=== PATIENT | male | born 1930 | race Caucasian/White ===

== ENCOUNTER 2017-06-02 03:34 | Inpatient (IN) ==
[2017-06-02] MEDS ORDERED: SALINE FLUSH 10ml SYRINGE IVF PRN (04:02)
--- OUTSIDE RECORDS SUMMARY | 2017-06-02 04:20 | External Medical Summary | Summary of Care ---
:1930 Author Name Russell Mireles M.D. Address [address] [facility] [place] [address] Care Team Providers Name Role Phone Russell Mireles M.D. Unavailable Unavailable Miller Krishna Unavailable Unavailable Unavailable Unavailable Unavailable Functional Status Functional Status Health Issues Name Dates Details Functional status health issues are not documented Status: Cognitive Status Health Issues Name Dates Details Cognitive status health issues are not documented Status: Problems Name Dates Details CAD (coronary artery disease) (414.00, I25.10) Status: Active Hypertension (401.9, I10) Status: Active Dyslipidemia (272.4, E78.5) Status: Active Cardiac arrhythmia (427.9, I49.9) Status: Active Malignant neoplasm of prostate (185, C61) Status: Active History of therapeutic radiation (V15.3, Z92.3) Status: Active Benign prostatic hyperplasia with lower urinary tract symptoms (600.01, N40.1) Status: Active Medications Name Dates Details Folic Acid 5 MG Oral Capsule TAKE 1 CAPSULE DAILY. Refills: 0 Start 14-Jun-2015 Active Acyclovir 200 MG Oral Capsule Refills: 0 Start 14-Jun-2015 Active Fluticasone Propionate 50 MCG/ACT Nasal Suspension Refills: 0 Start 14-Jun-2015 Active Aspirin 81 MG TABS TAKE 1 TABLET DAILY. Refills: 0 Start 14-Jun-2015 Active Fish Oil 1000 MG Oral Capsule TAKE 1 CAPSULE DAILY. Refills: 0 Start 14-Jun-2015 Active Multivitamins Oral Capsule TAKE 1 CAPSULE DAILY. Refills: 0 Start 14-Jun-2015 Active Calcium 600 MG Oral Tablet TAKE 1 TABLET DAILY. Refills: 0 Start 14-Jun-2015 Active Omeprazole 20 MG Oral Capsule Delayed Release TAKE 1 CAPSULE DAILY. Refills: 0 Russell Mireles M.D. Start 14-Jun-2015 Active Nortriptyline HCl - 25 MG Oral Capsule Refills: 0 Start 14-Jun-2015 Active Amlodipine-Atorvastatin 5-20 MG Oral Tablet TAKE 1 TABLET DAILY. Refills: 0 Start 14-Jun-2015 Active Metoprolol Succinate ER 50 MG Oral Tablet Extended Release 24 Hour Refills: 0 Start 14-Jun-2015 Active Latanoprost 0.005 % Ophthalmic Solution Refills: 0 Start 19-Jan-2016 Active Allergies and Adverse Reactions Name Dates Details No Known Allergies (Allergy) Status: Active Procedures Procedure Dates Details History of Cath Stent Placement History of Appendectomy History of Colonoscopy Procedures not documented Immunization Name Dates Details Immunizations not documented Family History Sibling Name Dates Details Family history of cerebrovascular accident (CVA) (V17.1, Z82.3) Status: Active Mother Name Dates Details Family history of hypertension (V17.49, Z82.49) Status: Active Family history of cerebrovascular accident (CVA) (V17.1, Z82.3) Status: Active Family history of Coronary heart disease (414.00, I25.10) Status: Active Brother Name Dates Details Family history of pancreatic cancer (V16.0, Z80.0) Status: Active Social History Name Dates Details - Status: Smoking Status Name Dates Details Never smoker Vital Signs Date Test Result Details 19-Jan-2016 09:32 BP Systolic 128 mm[Hg] Status: Comments: Location: ; Position: BP Diastolic 71 mm[Hg] Status: Comments: Location: ; Position: Heart Rate 67 /min Status: Comments: Location: ; Height 69 in Status: Weight 165 lb Status: Body Mass Index Calculated 24.37 kg/m2 Status: Body Surface Area Calculated 1.9 m2 Status: Results Date Description Value Details 19-Jan-2016 13:09 PSA ( PROSTATE SPECIFIC ANTIGEN) 3100 PROSTATE SPECIFIC ANTIGEN 0.440 ng/mL Range: 0.000-4.000 Plan of Care Name Dates Details Planned Observations Planned Goals not documented Instructions Name Dates Details Instructions not documented Encounters Appointment; Russell Mireles M.D. On 19-Jan-2016 Encounter Diagnosis: Problem not documented 09:00
--- OUTSIDE RECORDS SUMMARY | 2017-06-02 04:20 | External Medical Summary | Summary of Care ---
:1930 Author Name Russell Mireles M.D. Address [address] [facility] [place] [address] Care Team Providers Name Role Phone Russell [...] Placement History of Appendectomy History of Colonoscopy PSA ( PROSTATE SPECIFIC ANTIGEN) 3100 Ordered: 19-Jan-2016 Immunization Name Dates Details Immunizations not documented [...] m2 Status: Results Date Description Value Details Results not documented Plan of Care Name Dates Details Planned Observations Planned Goals not documented Interventions Provided Labs/Procedures/ImagingPSA ( PROSTATE SPECIFIC ANTIGEN) 3100; To be Done: 19 Jan 2016 Instructions Name Dates Details Instructions not documented Encounters Appointment; Russell Mireles M.D. On 19-Jan-2016 Encounter Diagnosis: Problem not documented 09:00
--- OUTSIDE RECORDS SUMMARY | 2017-06-02 04:20 | External Medical Summary | Continuity of Care Document ---
:1930 Author Organization [facility] Support Name Relationship Address Phone JAYSON HARKINS DO Unavailable [facility] Unavailable [address] [place] [address] STEFANIE LOMAS MD Unavailable Unavailable Unavailable CHRISTOFER MOJICA MD Unavailable [facility] [place] [address] DULCE MOREIRA Unavailable [address] [place] [address] Insurance Providers Payer Name Policy Number Subscriber Name Relationship Medicarehumicha Campbell [facility] [id number] Rosalia Moreira 20 Self Advance Directives Directive Response Recorded Date/Time Advanced Directives Type None 09/01/14 10:30pm Problems Medical Problems Problem Onset Date Status 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 Laceration of right index finger w/o foreign body w/o damage to Unknown Active nail Medications Medication Dose Route Sig Days/Qty Instructions Order Discontinued Status Date Date Alprazolam 0.5 PO 09/22/ 09/23/08 Discontinue Mg NEEDED 09 d [Nitro-Quick] 09/22/ 09/23/08 Discontinue NEEDED 09 d Metoprolol 50 Mg PO DAILY 09/23/ Active Succinate 09 Omeprazole 20 Mg PO DAILY 09/23/ Active 09 Ezetimibe/Simv 1 Tab PO DAILY 09/23/ 09/10/12 Discontinue astatin 09 d Fluticasone 16 Gm NS BEDTIME 09/23/ 07/26/12 Discontinue Propionate 09 d Aspirin 81 Mg PO DAILY 09/23/ Active 09 [place]-3 Fatty 500 PO DAILY 09/23/ Active Acids Mg 09 Multivitamins 1 Tab PO DAILY 09/23/ Active 09 Calcium 2 Tab PO DAILY 09/23/ Active Carbonate/Denae 09 min D3 Nortriptyline 25 Mg PO DAILY 07/26/ Active Hcl 13 Atorvastatin 20 Mg PO DAILY 09/10/ Active Calcium 13 Fluticasone 16 Gm NS 09/10/ Active Propionate NEEDED 13 Social History Social History Problem Response Recorded Date/Time Chewing Tobacco Status No 09/10/2012 11:36am Hx Substance Use No 09/01/2014 11:16pm Hx Alcohol Use Y GLASS OF WINE TWICE A WEEK 09/01/2014 11:16pm Has the pt used tobacco in the last No 09/10/2012 11:36am 12 months Tobacco Usage none 06/29/2014 6:38am Query Response Start Date Stop Date Smoking Status Never smoker Hospital Discharge Instructions No hospital discharge instructions. Plan of Care No plan of care. Functional Status Query Response Date Recorded Physical Hygiene Self September 01, 2014 11:16pm Disabilities Hearing September 01, 2014 11:16pm Visual Devices Used Glasses September 01, 2014 11:16pm Dressing Self September 01, 2014 11:16pm Ambulation Self September 01, 2014 11:16pm Diet Self September 01, 2014 11:16pm Mental Status Alert September 01, 2014 11:37pm Disabilities Hearing September 01, 2014 11:16pm Visual Devices Used Glasses September 01, 2014 11:16pm Physical Hygiene Self September 01, 2014 11:16pm Dressing Self September 01, 2014 11:16pm Ambulation Self September 01, 2014 11:16pm Diet Self September 01, 2014 11:16pm Allergies, Adverse Reactions, Alerts Allergen Type Severity Reaction Status Last Updated No Known Drug Allergies Allergy Unknown Active 09/01/14 Immunizations Name Given Type Hx Influenza Vaccination Y fall 2013 Historical Hx Pneumococcal Vaccination Y YEARS AGO Historical Hx Tetanus, Diptheria, Pertussis Y 09/02/14 Historical Hx Influenza Vaccination Y fall 2013 Historical Hx Tetanus, Diptheria, Pertussis Y 09/02/14 Historical Vital Signs Acute Vital Signs Vital Response Date/Time Temperature (Fahrenheit) 97.4 deg F (96.8 - 99.1) Temperature (Calculated Celsius) 36.70715 degrees C (36.0 - 37.3) Pulse Rate (adult) 78 bpm (60 - 100) Respiratory Rate 16 breaths/min (10 - 20) O2 Sat by Pulse Oximetry 97 % (90 - 100) Blood Pressure 180/80 mm Hg Height 5 ft 8 in Weight 169 lb Body Mass Index 25.0 kg/m^2 Results Test Source Date Result Interp. Ref. Comments Range Activated Partial June 29, 29.2 SEC N 24-36 Thromboplast Time 2014 6:45am Alanine June 29, 27 U/L N 21-72 Aminotransferase 2014 6:45am (ALT/SGPT) Albumin June 29, 3.9 G/DL N 3.5-5.0 2014 6:45am Albumin/Globulin June 29, 1.4 RATIO N 1.1-2.2 Ratio 2014 6:45am Alkaline Phosphatase June 29, 58 U/L N 38-126 2014 6:45am Anion Gap June 29, 11 MEQ/L N 5-15 2014 6:45am Aspartate Amino June 29, 25 U/L N 17-59 Transf (AST/SGOT) 2014 6:45am BUN/Creatinine Ratio June 29, 14 RATIO N 6-26 2014 6:45am Basophils # (Auto) June 29, 0.0 T/MM3 N 0-0.2 2014 6:45am Basophils (%) (Auto) June 29, 0.5 % N 0-2 2014 6:45am Blood Urea Nitrogen June 29, 23.0 MG/DL H 9-20 2014 6:45am Calcium Level June 29, 9.3 MG/DL N 8.4-10.2 2014 6:45am Calculated Osmolality June 29, 280 MOSM/KG N [id number] 5714 6:45am Carbon Dioxide Level June 29, 27 MEQ/L N 22-30 2014 6:45am Chemistry Specimen June 29, < 15 0-25 0-25: No Hemolysis.26-70: Slight Hemolysis - can falsely elevate K and Urine Hemolysis 2014 6:45am Protein. 71-285: Moderate Hemolysis - can falsely elevate K, Troponin I, CA 19-9, PTH, CSF GLucose, and Urine Protein, and can falsely decrease Phenytoin. 286-999: Gross Hemolysis - can falsely elevate K, Troponin I, CA 19-9, PTH, CSF Glucose, and Urine Protine, and can falsely decrease Phenytoin. Recommend specimen recollection. Chloride Level June 29, 105 MEQ/L N 98-107 2014 6:45am Conjugated Bilirubin July 26, 0.00 MG/DL N 0.00-0.30 2012 10:14pm Creatinine June 29, 1.6 MG/DL H 0.8-1.5 2014 6:45am Eosinophils # (Auto) June 29, 0.5 T/MM3 N 0-0.5 2014 6:45am Eosinophils (%) June 29, 7.7 % H 0-4 (Auto) 2014 6:45am Globulin June 29, 2.8 G/DL N 2.4-3.6 2014 6:45am Glomerular Filtration June 29, 42 - Rate Calc 2014 6:45am Glucometer June 29, 108 mg/dL N 75-110 2014 6:54am Glucose Level June 29, 112 MG/DL H 75-110 2014 6:45am Hematocrit June 29, 38.9 % L 41-53 2014 6:45am Hemoglobin June 29, 13.6 GM/DL N 13.5-17.5 2014 6:45am Icterus Index June 29, < 2 0-7 2014 6:45am Immature Granulocyte June 29, 0.01 T/MM3 N 0.00-0.03 # (Auto) 2014 6:45am Immature Granulocyte June 29, 0.2 % N 0.0-0.5 % (Auto) 2014 6:45am Influenza Type A April 07, Negative - Antigen 2008 11:35am Influenza Type B April 07, Negative - Antigen 2008 11:35am Lab Scanned Report April 07, LAB TEST FORM - 2008 10:41pm REQUEST [id number] Lymphocytes # (Auto) June 29, 2.1 T/MM3 N 1-4.8 2014 6:45am Lymphocytes (%) June 29, 32.8 % N 23-45 (Auto) 2014 6:45am Mean Corpuscular June 29, 33.9 UUG N 26-34 Hemoglobin 2014 6:45am Mean Corpuscular June 29, 35.0 GM/DL N 31-37 Hemoglobin Concent 2014 6:45am Mean Corpuscular June 29, 97.0 UM3 N 80-100 Volume 2014 6:45am Mean Platelet Volume June 29, 10.3 UM3 N 9.4-12.4 2014 6:45am Monocytes # (Auto) June 29, 0.8 T/MM3 N 0-0.8 2014 6:45am Monocytes (%) (Auto) June 29, 11.7 % H 0-9.0 2014 6:45am Neutrophils # (Auto) June 29, 3.1 T/MM3 N 1.8-7.7 2014 6:45am Neutrophils (%) June 29, 47.1 % N 33-66 (Auto) 2014 6:45am Platelet Count June 29, 157 T/MM3 N 380-466 9710 6:45am Potassium Level June 29, 4.3 MEQ/L N 3.6-5 2014 6:45am Prothromb Time June 29, 1.00 N 0.81-1.09 THERAPUTIC International Ratio 2014 6:45am RANGE=2.00-3.0 0 FOR ANTI-THROMBOSI S THERAPUTIC RANGE=2.50-3.5 0 FOR IMPLANTED VALVE RDW Standard June 29, 42.7 FL N 36.9-50.2 Deviation 2014 6:45am Red Blood Count June 29, 4.01 M/MM3 L 4.50-5.90 2014 6:45am Sodium Level June 29, 143 MEQ/L N 476-322 2385 6:45am Total Bilirubin June 29, 0.70 MG/DL N 0.20-1.30 2014 6:45am Total Protein June 29, 6.7 G/DL N 6.3-8.2 2014 6:45am Troponin I June 29, < 0.012 0-0.12 2014 6:45am ng/ml Turbidity June 29, < 20 0-20 2014 6:45am Unconjugated July 26, 0.30 MG/DL N 0.00-1.10 Bilirubin 2012 10:14pm White Blood Count June 29, 6.5 T/MM3 N 4.5-11.0 2014 6:45am Name: ROSALIA MOREIRA Unit #: [id number] : 1930 Sex: M Loc / Svc: [facility] DOS: 07/03/14 Signed Report #: [id number] DIAGNOSTIC IMAGING REPORT TYPE OF EXAM: US CAROTID DOPP COMPLETE Dictated By: GABRIELE EARLY MD TECHNIQUE: Grayscale, color and duplex Doppler imaging was performed of the carotid systems bilaterally. Velocities in cm/sec RIGHT: PSV ICA 53 PSV CCA 97 PDV CCA 9.6 PSV ECA 80 ICA Diameter reduction <20% (0.8-1.0)% LEFT: PSV ICA 85 PDV ICA 14 PSV CCA 94 PDV CCA 18 PSV ECA 100 ICA Diameter reduction <20% (0.8-1.0)% The right vertebral artery is patent with cephalic flow. The left vertebral artery is patent with cephalic flow. Scattered atherosclerotic plaque in the carotid bulbs and proximal ICAs. IMPRESSION: No hemodynamically significant carotid stenosis. . Procedures Procedure Status Date Provider(s) PLACE NEEDLE IN VEIN completed 06/29/[address] HEAD/BRAIN W/O DYE completed 06/29/14 COMPREHEN METABOLIC PANEL completed 06/29/14 REAGENT STRIP/BLOOD GLUCOSE completed 06/29/14 ASSAY OF TROPONIN QUANT completed 06/29/14 COMPLETE CBC W/AUTO DIFF WBC completed 06/29/14 PROTHROMBIN TIME completed 06/29/14 THROMBOPLASTIN TIME PARTIAL completed 06/29/14 ELECTROCARDIOGRAM TRACING completed 06/29/14 EMERGENCY DEPT VISIT completed 06/29/14 EXTRACRANIAL BILAT STUDY completed 07/03/14 Encounters Encounter Location Date/Time Departed Emergency Room [facility] 09/01/14 9:42pm Registered Clinic [facility] 07/03/14 9:29am Departed Emergency Room [facility] 06/29/14 6:11am Recent Diagnosis
--- OUTSIDE RECORDS SUMMARY | 2017-06-02 04:20 | External Medical Summary | Summary of Care ---
:1930 Author Name Russell Mireles M.D. Address [address] [facility] [place] [address] Care Team Providers Name Role Phone Russell [...]
--- NOTE | 2017-06-02 05:39 | History & Physical Report ---
History of Present Illness Date: 06/02/17 Chief complaint: rectal bleeding HPI: 86-year-old male presents to the emergency room with rectal bleeding. This started around 0200. He woke up because He was incontinent of stool, went to the restroom and noted that Was bright red bloody bowel movement that he had an event in the stool. He's had a couple few more including one here at the hospital. He denies any feelings of illness either earlier today or with the bowel movements and even right at this moment. He does feel a bit of pressure in his abdomen like some urgency that he needs to have a bowel movement. He denies taking aspirin or any blood thinners for that matter. He denies any known previous history of anything like this. He thinks he had a colonoscopy 5 years ago that was reportedly normal. He denies any fever chills nausea vomiting he denies any cough shortness of breath orthopnea or PND. He usually ambulates normally without assistive device. Review of records indicates his last hemoglobin on record was 13.6 on June Annamarie WISDOM: patient was seen this afternoon. He was resting comfortable in bed. His is at bedside. He reports that this all started very suddenly. He did not have any problems prior to waking up at 2 AM with blood in the bed. He denies any abdominal pain. He states he had a colonoscopy about 5 or [address] Krishna and was told have it done again 10 years. He denies any nausea or vomiting. He denies any abdominal pain. He has continued to have bright red blood per rectum since arrival. He states that it just pours out. He does have an occasional bowel movement with it but it's quite loose with small pieces of thicker material. He states he had a normal bowel movement the day prior. He is having issues with getting up to the bathroom. He becomes diuretic and week. Vital signs have been reasonably stable however at 106/55 with a heart rate of 58 this last trip. He was setting 97% on room air. Blood glucose was checked and it was 180. He denies any chest pain or palpitations. When this started he thought he was having some gas pressure in his stomach that that is subsequently resolved. He is not been ill lately particularly no fever or chills. He denies any shortness of breath, cough or sputum production. He denies any issues with lower extremity edema. Review of Systems All systems PM: 10-point ROS was reviewed, no additional remarkable complaints except Review of systems: Annamarie WISDOM: Review of systems was noted in HPI Past Medical History Clinic Medical History (Last Reviewed 05/01/17 @ 09:29 by Latonya Guerrier RN) Macular degeneration (Chronic Medical) Hyperlipidemia (Chronic Medical) Hypertension (Chronic Medical) History of prostate cancer (Chronic Medical) Radiation Cataract (Chronic Medical) CAD (coronary artery disease) (Chronic Medical) GERD (gastroesophageal reflux disease) (Chronic Medical) AnnamarieMD: Medical history reviewed with the patient and agree with above Surgical History: Appendectomy: as child. Heart catheterization with stent placement: late 1989' Family History: Family History (Last Reviewed 05/01/17 @ 09:29 by Latonya Guerrier RN) Mother CAD (coronary artery disease) Brother Pancreatic cancer Brother Heart attack Family History Updates: nc based on age. Real: Dad at 90 for old age. Mom of a heart attack that she was 80. - Social History Smoking status: Never smoker Medications Home Medications Medication Instructions Recorded Confirmed Type Nortriptyline HCl 25 mg PO DAILY #0 07/26/12 06/02/17 History Atorvastatin Calcium 20 mg PO HS #0 09/10/12 06/02/17 History Folic Acid 0.4 mg PO DAILY #0 09/06/14 06/02/[address] [place]-3 Fatty Acids/Fish Oil [Fish 1,000 mg PO DAILY #0 01/01/16 06/02/17 History Oil 1,000 mg Softgel] Lopressor (metoprolol tartrate) 50 50 mg PO DAILY tab 02/27/17 06/02/17 History mg tablet latanoprost (Xalatan) 0.005 % eye 0.005 % OP DAILY ml 02/27/17 06/02/17 History drops multivitamin tablet 1 tab PO DAILY tab 02/27/17 06/02/17 History Allergies Allergy/AdvReac Type Severity Reaction Status Date / Time No Known Drug Allergies Allergy Unknown Verified 06/02/17 06:23 Exam Vital Signs: Temperature 98.3 F 06/02/17 03:40 Pulse Rate 88 06/02/17 03:40 Respiratory Rate 18 06/02/17 03:40 Blood Pressure 183/80 H 06/02/17 03:40 Pulse Oximetry 98 06/02/17 03:40 Height/Weight/BMI: Height 1.73 m Weight 74 kg Comments: AnnamarieMD: Gen: alert and oriented. NAD. Pleasant and conversive Skin: warm and dry. HEENT: NC/AT PERRL, EOMI, Sclera,lids and conjunctiva wnl. MMM. OP clear. Neck: supple. No JVD. Carotids 2+ without bruits Lungs: clear. No rales, rhonchi or wheezes CV: regular rate and rhythm. No murmur, rub or gallop No edema. Pedal pulses are good Abd: soft. +BS. NT/ND MS: Good strength and ROM. Neuro: no focal deficit. - Constitutional Present: no acute distress, well nourished, well developed Comments: is very pleasant and appears perhaps younger than stated age alert and oriented 3 HEENT no scleral pallor No icterus Lungs are clear bilaterally Cardiovascular is regular without murmur Abdomen is soft nontender nondistended normoactive bowel sounds Extremities no edema Results - Labs CBC & Chem 7: 06/02/17 09:03 06/02/17 04:32 Assessment and Plan (1) Hematochezia Current visit: Yes Status: Acute (2) Anemia due to acute blood loss Current visit: Yes Status: Acute (3) Hyperlipidemia Current visit: No Status: Chronic (4) Hypertension Current visit: No Status: Chronic (5) CAD (coronary artery disease) Current visit: No Status: Chronic (6) History of prostate cancer Problem details: Radiation Current visit: No Status: Chronic (7) GERD (gastroesophageal reflux disease) Current visit: No Status: Chronic (8) Renal failure Problem details: previous creat 1.6 on 06/29/14 Current visit: Yes Status: Acute Assessment and Plan: Assessment and Plan: Annamarie MD: 1. Acute lower GI bleed. -Painless, without fever or elevated white count. -Patient had colonoscopy 5 years ago without significant finding. -Supportive care, IVF -H&H again later today. -Dr. Fan has seen an order 3 ducal locks suppositories and is planning on a colonoscopy. -Keep NPO 2. Anemia from acute GI blood loss -will await on Dr. Fan's plan -serial H &H -IV fluids 3. CAD with stents in late . (Gildardo) -on beta jorge and Hanna but not on aspirin regularly. 4. Hypertension -holding beta jorge at this time as blood pressures are on the low side 5. Acute kidney injury -no history of chronic kidney disease per patient. -Will follow labs -IV fluids 6. Prophylaxis -SCD's -PPI DVT Prophylaxis: SCD's GI Prophylaxis: Protonix Resuscitation Status: Full Code - Time spent with patient Time with patient PN: 25 minutes - Physician Narrative Physician: Ayad Moe MD, Brenda De Luna MD, other (Lori WISDOM Telemed Night ) Narrative: Date: 06/02/17 Time: 0536 Hospital Course Summary Disclaimer: The visit summary below is not to be considered part of the above Progress Note.
--- NOTE | 2017-06-02 05:45 | Emergency Department Report ---
GI Bleed HPI - General Chief complaint: GI Bleed Stated complaint: bloody b.m Time Seen by Provider: 06/02/17 04:02 - History of Present Illness HPI Narrative: 86-year-old gentleman brought in with rectal bleed. Patient awoke shortly thereafter at night with bright red blood per rectum. He is not incontinent of stool by history, but noted that he was leaking something and thought he had had a bowel movement. In the bathroom he noticed bright red blood into the toilet bowl and when he wiped toilet paper was covered in blood. Bleeding continued and was dripping. At which time he placed a washcloth in his underwear and came directly to the ER. He has had no previous history of colon cancer. Has had multiple colonoscopies, with the last one being approximately 4- 5 years ago. He was clean at that time and told that he could wait 10 years prior to repeating unless he had any new issues. He's had no lightheadedness or dizziness or shortness of breath. As of yesterday he felt fine and was active. - Related Data Home Medications Medication Instructions Recorded Confirmed Nortriptyline HCl 25 mg PO DAILY #0 07/26/12 06/02/17 Atorvastatin Calcium 20 mg PO HS #0 09/10/12 06/02/17 Folic Acid 0.4 mg PO DAILY #0 09/06/14 06/02/17 [place]-3 Fatty Acids/Fish Oil [Fish 1,000 mg PO DAILY #0 01/01/16 06/02/17 Oil 1,000 mg Softgel] Lopressor (metoprolol tartrate) 50 50 mg PO DAILY tab 02/27/17 06/02/17 mg tablet latanoprost (Xalatan) 0.005 % eye 0.005 % OP DAILY ml 02/27/17 06/02/17 drops multivitamin tablet 1 tab PO DAILY tab 02/27/17 06/02/17 Allergies Allergy/AdvReac Type Severity Reaction Status Date / Time No Known Drug Allergies Allergy Unknown Verified 06/02/17 03:59 Review of Systems All systems: reviewed and negative except as stated [facility] Medical History (Last Reviewed 05/01/17 @ 09:29 by Latonya Guerrier RN) Macular degeneration (Chronic Medical) Hyperlipidemia (Chronic Medical) Hypertension (Chronic Medical) History of prostate cancer (Chronic Medical) Radiation Cataract (Chronic Medical) CAD (coronary artery disease) (Chronic Medical) GERD (gastroesophageal reflux disease) (Chronic Medical) Surgical History: Appendectomy: as child. Heart catheterization with stent placement: late Family History: Family History (Last Reviewed 05/01/17 @ 09:29 by Latonya Guerrier RN) Mother CAD (coronary artery disease) Brother Pancreatic cancer Brother Heart attack - Social History Smoking status: Never smoker Substance use type: does not use Physical Exam - Limitations Limitations: no limitations - General General appearance: alert, anxious - Normal Exams: Head:: Normocephalic without trauma Chest/Respirations:: Clear all olsen, with good airflow, and symmetry bilaterally Cardiovascular:: Regular rate and rhythm, without murmur or gallop, Pulses 2+ all extremities, capillary refill, <2 seconds all extremities Abdomen:: Bowel sounds positive, soft, non-tender, non-distended, no hepatosplenomegaly, masses or bruits noted Neurological:: Patient is alert, and oriented, cranial nerves, motor/sensory/ cerebellar, exams w/o gross deficits, to observation Psychiatric:: Patient exhibits, appropriate attention, emotion and affect - Rectal Exam Rectal exam: Present: normal rectal tone, other (bright red blood per rectum) Course Vital Signs Temperature 98.3 F 06/02/17 03:40 Pulse Rate 88 06/02/17 03:40 Respiratory Rate 18 06/02/17 03:40 Blood Pressure 183/80 H 06/02/17 03:40 Pulse Oximetry 98 06/02/17 03:40 Temperature 98.3 F 06/02/17 03:40 Pulse Rate 88 06/02/17 03:40 Respiratory Rate 18 06/02/17 03:40 Blood Pressure 183/80 H 06/02/17 03:40 Pulse Oximetry 98 06/02/17 03:40 GI Bleed - MDM Narrative Medical decision making narrative: Patient noted to have bright red blood per rectum. Hemoglobin 11.9 with most recent hemoglobin from greater than 2 years ago being 13. Patient has stable vitals and no pain. I spoke with Dr. Fan, on-call for surgery, who agreed to be consult for care and requested the hospitalist admit the patient. Spoke with Dr. Sandoval who agreed to admit the patient is in the process of doing so at this time. I discussed this with the patient has and they're aware that plan will be to admit and do follow-up serial hemoglobin and hematocrit. - Differential Diagnosis Likely: hemorrhoids, Upper gastrointestinal hemorrhage, Lower gastrointestinal hemorrhage, melena, anal fissure - Medical Records Attestation: I reviewed the patient's medical records. - Lab Data Attestation: I reviewed the patient's lab results. Result diagrams: 06/02/17 04:32 06/02/17 04:32 Lab Results 06/02/17 06/02/17 06/02/17 Range/Units 04:32 04:32 04:32 WBC 8.7 (4.5-11.0) T/MM3 RBC 3.54 L (4.50-5.90) M/MM3 Hgb 11.9 L (13.5-17.5) GM/DL Hct 34.8 L (41-53) % MCV 98.3 (80-100) UM3 MCH 33.6 (26-34) UUG MCHC 34.2 (31-37) GM/DL RDW Std Deviation 45.1 (36.9-50.2) FL Plt Count 163 (130-400) T/MM3 MPV 10.7 (9.4-12.4) UM3 Immature Gran % (Auto) 0.1 (0.0-0.5) % Neut % (Auto) 66.1 H (33-66) % Lymph % (Auto) 20.2 L (23-45) % [place] % (Auto) 7.5 (0-9.0) % Eos % (Auto) 5.6 H (0-4) % Baso % (Auto) 0.5 (0-2) % Neut # (Auto) 5.8 (1.8-7.7) T/MM3 Lymph # (Auto) 1.8 (1-4.8) T/MM3 [place] # (Auto) 0.7 (0-0.8) T/MM3 Eos # (Auto) 0.5 (0-0.5) T/MM3 Baso # (Auto) 0.0 (0-0.2) T/MM3 Abs Immat Gran (auto) 0.01 (0.00-0.03) T/MM3 INR 1.05 (0.99-1.21) Turbidity < 20 (0-20) Sodium 141 (134-144) MEQ/L Potassium 4.2 (3.6-5) MEQ/L Chloride 109 H (98-107) MEQ/L Carbon Dioxide 21 L (22-30) MEQ/L Anion Gap 11 (5-15) MEQ/L BUN 23.0 H (9-20) MG/DL Creatinine 1.3 (0.8-1.5) MG/DL GFR Calculation 53 BUN/Creatinine Ratio 18 (6-26) RATIO Glucose 129 H (75-110) MG/DL Calculated Osmolality 277 (261-280) MOSM/KG Calcium 9.5 (8.4-10.2) MG/DL Total Bilirubin 0.40 (0.20-1.30) MG/DL Icterus Index < 2 (0-7) AST 20 (17-59) U/L ALT 33 (21-72) U/L Alkaline Phosphatase 85 (38-126) U/L Total Protein 7.2 (6.3-8.2) G/DL Albumin 4.1 (3.5-5.0) G/DL Globulin 3.1 (2.4-3.6) G/DL Albumin/Globulin Ratio 1.3 (1.1-2.2) RATIO Specimen Hemolysis < 15 (0-25) - Radiology Data Attestation: I reviewed the patient's radiology results. Disposition Clinical Impression: Rectal bleed Disposition: 02 To [facility] Condition: Stable Prescriptions: No Action Nortriptyline HCl 25 mg PO DAILY #0 Atorvastatin Calcium 20 mg PO HS #0 Folic Acid 0.4 mg PO DAILY #0 [place]-3 Fatty Acids/Fish Oil [Fish Oil 1,000 mg Softgel] 1,000 mg PO DAILY #0 multivitamin tablet 1 tab PO DAILY tab Lopressor (metoprolol tartrate) 50 mg tablet 50 mg PO DAILY tab latanoprost (Xalatan) 0.005 % eye drops 0.005 % OP DAILY ml Referrals: Ifrah Galo MD [Family Provider] - Time of Disposition: 05:46 - Seen By: physician
[2017-06-02] MEDS ORDERED: MORPHINE SULFATE 4mg INJECTION IVP PRN (06:07)
[2017-06-02] MEDS: D5-1/2NS 1,000 ML IV SCH ×4 (06:28→23:23)
[2017-06-02 06:31] VITALS: BMI 24.3
[2017-06-02] MEDS ORDERED: Bisacodyl EC TAB 5 MG TABLET PO ONE (11:29)
[2017-06-02] MEDS ORDERED: POLYETHYL. GLYCOL 3350 BOTTLE 238 GM PO ONE (13:35)
[2017-06-02] MEDS ORDERED: LIDOCAINE 5% CREAM 15gm TOP PRN (13:35)
--- NOTE | 2017-06-02 14:12 | Consultation ---
DATE OF CONSULTATION 06/02/2017 HISTORY OF PRESENT ILLNESS This patient is 86 years old. This patient underwent radiation treatment for prostate cancer in 1993 at [facility] at [place], [place]. The patient was under the care of Dr. Mireles at this time. The patient has had multiple previous colonoscopy procedures as described below. The patient underwent a colonoscopy procedure on 01/01/2008 because of a history of rectal bleeding. At the time of that colonoscopy procedure, the patient was noted to have areas of recent bleeding at internal hemorrhoids and internal hemorrhoids were thought to be the source for the rectal bleeding at that time. At a colonoscopy procedure in 2008, the patient was thought to have proctitis as well as internal hemorrhoids. The patient also had some descending sigmoid colon diverticulosis. At his most recent colonoscopy procedure on 09/11/2012, the patient was noted to have extensive diverticulosis at the descending and sigmoid colon. The patient states that he has recently been having daily bowel movements. He does use Metamucil two teaspoonsful in a glass of water daily in the morning. The patient states today that he cannot recall ever having any previous rectal bleeding. He has certainly not had any rectal bleeding at all during the last few years. The patient was awakened at 0200 hours on 06/02/2017 with a sensation of some liquid at the anal area. The patient got up and found that this sensation was caused by some rectal bleeding which he was experiencing at that time. The patient did get up and go to the bathroom and discovered that he was passing some bright red bloody material from the rectum. The patient did come to [facility] for evaluation. He has had some fecal urgency. He did have some more bright red rectal bleeding at the [facility]. He was admitted to [facility] from the emergency room for evaluation and treatment of acute lower gastrointestinal tract bleeding. The patient states that he has had no abdominal pain along with this rectal bleeding. He does have some fecal urgency. He does have some pressure sensation at the rectum before he has a bloody bowel movement. The patient is not taking any anticoagulants. He had a hemoglobin of 13.6 on 06/29/2014. The patient had a hemoglobin of 11.9 and hematocrit of 34.8 at the time of evaluation at [facility] on 06/02/2017. The patient has been admitted to [facility] from the emergency room for evaluation and treatment of the acute lower gastrointestinal tract bleeding. PAST MEDICAL HISTORY PREVIOUS OPERATIONS 1. Appendectomy at a time when the patient was in the sixth grade at [place], [place]. 2. Cardiac catheterization with placement of coronary artery stent at left anterior descending coronary artery on 09/27/[address] Andino at [facility] at [place], [place]. 3. Colonoscopy in [address] Zach Torrez at [place], [place]. 4. Colonoscopy on 07/19/[address] Krishna. The patient may have had some tubular adenoma colon polyps removed at the time of this colonoscopy procedure. 5. Colonoscopy on 01/01/[address] Krishna at [facility] at [place], [place]. The patient had been having some rectal bleeding. The patient had a history of colon polyps. The patient was known to have a history of radiation therapy for prostate cancer. The patient was found at this procedure to have internal hemorrhoids with evidence of recent bleeding from the internal hemorrhoids. The patient had some mild sigmoid colon diverticulitis. There was some evidence of infection at the cecum. 6. Colonoscopy with biopsy of small polyp at cecum on 09/23/[address] Krishna at [facility] at [place], [place]. Pathology report diagnosis showed that there was a tubular adenoma removed by mucosal biopsy of the ileocecal valve. The patient was noted at this colonoscopy procedure to have some descending and sigmoid colon diverticulosis. The patient also had some proctitis. 7. Colonoscopy on 09/11/[address] Krishna at [facility] at [place], [place]. The patient did have extensive descending and sigmoid colon diverticulosis found at this procedure. Findings were otherwise normal. PHYSICAL EXAMINATION VITAL SIGNS: Temperature is 97.1 degrees Fahrenheit oral. Pulse is 74. Respiratory rate is 20. Blood pressure is 138/66. Oxygen saturation is 97% on room air. ABDOMEN: The patient does have an old obliquely oriented right lower quadrant abdominal incision scar from his appendectomy operation. The patient has a tattoo at the suprapubic area of the abdomen associated with his previous radiation therapy. The abdomen is soft and nontender. No abdominal masses. RECTUM: Digital rectal examination was performed. There is a small amount of bright red blood in the rectum at this time. No rectal masses can be palpated. There is no stool in the rectal vault at this time. No external hemorrhoids are noted. LABORATORY DATA White blood cell count was 8700 at 0432 hours on 06/02/2017. Hemoglobin was 11.9 and hematocrit was 34.8 at 0432 hours on 06/02/2017. Hemoglobin was 10.5 and hematocrit was 31.9 at 0903 hours on 06/02/2017. IMPRESSION 1. Acute lower gastrointestinal tract bleeding. This could be from colonic diverticulosis. 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 2. Anemia due to acute lower gastrointestinal tract blood loss. 3. Extensive descending and sigmoid colon diverticulosis found at colonoscopy on 09/11/2012. 4. Status post radiation therapy for treatment of prostate cancer. This does raise the possibility of radiation proctitis as a cause for the acute lower gastrointestinal tract bleeding. 5. 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 6. Internal hemorrhoids found at colonoscopy in 2007 and 2008. 7. Gastroesophageal reflux disease. 8. Coronary artery disease. 9. Hypertension. 10. Hyperlipidemia. 11. Personal history of tubular adenoma colon polyps. 12. Hearing loss. RECOMMENDATION 1. Continue to monitor hemoglobin and hematocrit as well as vital signs. 2. Transfuse patient as necessary. 3. Bowel prep today. 4. Colonoscopy tomorrow. PATIENT EDUCATION I did talk with the patient and his about having the patient undergo a bowel prep today and colonoscopy tomorrow. Expected benefits were reviewed. Alternatives were reviewed. Potential risks and complications of colonoscopy were discussed with the patient and his including anesthetic risk, aspiration, hypoxia, induced bleeding and colon perforation. I did tell the patient that if he has colonic diverticulosis and the site for bleeding can be identified that this might be treated with placement of an endoscopic Hemoclip or some other method to attempt to control the bleeding. I told the patient that if he is found to have bleeding from radiation proctitis that he will probably undergo argon beam coagulation and ablation of telangiectasia lesions associated with radiation proctitis. Potential risks and complications of any interventions to try to control bleeding were also discussed. Questions were solicited from the patient and his . All their questions were answered. They do wish to have the patient proceed. [facility]
[2017-06-02] MEDS ORDERED: MAGNESIUM CITRATE 296ml PO ONE (18:42)
[2017-06-03] MEDS: D5-1/2NS 1,000 ML IV SCH ×4 (05:28→23:09)
[2017-06-03] MEDS ORDERED: PANTOPRAZOLE 40 MG TABLET PO SCH (06:30)
[2017-06-03] MEDS ORDERED: FLEET PHOSPHO - SODA ENEMA 133ml PR PRN (07:24)
[2017-06-03] MEDS ORDERED: FLEET PHOSPHO - SODA ENEMA 133ml PR ONE (07:29)
--- NOTE | 2017-06-03 09:42 | Anesthesia Preoperative Report ---
Anesthesia Preoperative Record - Date and Time Date: 06/03/17 Preoperative Diagnosis: gi bleed Proposed Procedure: colonoscopy NPO Since Date: 06/02/17 NPO Since Time: 23:00 Allergies/Adverse Reactions: Allergies Allergy/AdvReac Type Severity Reaction Status Date / Time No Known Drug Allergies Allergy Unknown Verified 06/02/17 06:23 - Vital Signs Vital Signs: Temperature 97.5 F 06/03/17 07:55 Pulse Rate 98 06/03/17 07:55 Respiratory Rate 16 06/03/17 07:55 Blood Pressure 141/71 H 06/03/17 07:55 Pulse Oximetry 98 06/03/17 07:55 Height and Weight: Height 5 ft 8 in Weight 73.6 kg Body Mass Index 24.3 - Medications Inpatient Medications: Current Medications Dextrose/Sodium Chloride (D5-1/2ns) 1,000 mls @ 125 mls/hr IV .Q8H [facility] Last Infusion: 06/03/17 09:00 Dose: 0 mls/hr Lactated Ringer's (Lactated Ringers) 1,000 mls @ 75 mls/hr IV .[id number] [facility] Last Admin: 06/03/17 09:25 Dose: 75 mls/hr Lidocaine (Anecream5) 1 applic TOP PRN PRN Morphine Sulfate (Morphine Sulfate Inj) 1 - 2 mg IVP Q2H PRN PRN Reason: Pain Ondansetron HCl (Zofran) 4 mg IVP Q6H PRN PRN Reason: Nausea &/or vomiting Pantoprazole Sodium (Protonix Tab) 40 mg PO ACB [facility] Last Admin: 06/03/17 05:31 Dose: Not Given Sodium Chloride (Iv Flush) 10 - 80 ml IVF PRN PRN PRN Reason: Flushing Sodium Phosphate (Fleet Enema) 1 enema [place] PRN PRN Last Admin: 06/03/17 07:51 Dose: 1 enema Home Medications: Home Medications Medication Instructions Recorded Confirmed Type Nortriptyline HCl 25 mg PO DAILY #0 07/26/12 06/02/17 History Atorvastatin Calcium 20 mg PO HS #0 09/10/12 06/02/17 History Folic Acid 0.4 mg PO DAILY #0 09/06/14 06/02/17 History [place]-3 Fatty Acids/Fish Oil [Fish 1,000 mg PO DAILY #0 01/01/16 06/02/17 History Oil 1,000 mg Softgel] Lopressor (metoprolol tartrate) 50 50 mg PO DAILY tab 02/27/17 06/02/17 History mg tablet latanoprost (Xalatan) 0.005 % eye 0.005 % OP DAILY ml 02/27/17 06/02/17 History drops multivitamin tablet 1 tab PO DAILY tab 02/27/17 06/02/17 History Is Patient on Beta Chilo?: Yes - Medical History Respiratory: DENIES: Sleep Apnea Cardiovascular: Reports: Coronary Artery Disease (stent x1 "96), Hypertension, High Cholesterol Other History: DENIES: Anesthesia Reactions - Surgical History Cardiac Surgeries/Treatments: Reports: Other (HEART STENT) GI Surgery/Treatments: Reports: Appendectomy Anesthesia Reactions: None Hx Family Anesthesia Reaction: No History of Motion Sickness: No - Social History Smoking Status: Never smoker Hx Chewing Tobacco Use: No Second Hand Exposure: No Substance Use Type: does not use Alcohol Intake Frequency: holidays/special occasions only - Pertinent Findings Laboratory: CBC and BMP 06/03/17 03:55 06/03/17 03:55 BMP 06/03/17 03:55 Sodium 133 L D Potassium 3.8 Chloride 102 D Carbon Dioxide 24 BUN 18.0 Creatinine 1.0 D Glucose 140 H Calcium 8.2 L D - Physical Exam Respiratory Exam: Present: lungs clear, bilateral breath sounds equal Cardiovascular Exam: Present: regular rate and rhythm - Airway Assessment Mallampati Score: II TMD: 3 Fingerbreadths Overall Assessment: no airway concerns - ASA ASA Score: 3, E - Plan Anesthesia: General TIVA - Discussion Discussion: Discussed risks/options/alternatives of anesthesia and questions answered. Patient consents. Nursing pain assessment noted. Present for Discussion: spouse, family member Attestation Statement: Prior to the delivery of any anesthetic medication, I examined the patient, developed the plan, obtained the patient's consent and discussed the risk and benefits of the procedure with the patient/guardian. - Additional Information Seen by Anesthesia: Yes
[2017-06-03] MEDS ORDERED: LR 1,000 ML IV SCH (09:45)
--- NOTE | 2017-06-03 10:08 | XRay Report ---
INDICATION: gi bleed PROCEDURE: CHEST 2-VIEWS UPRIGHT (PA & LAT) Encounter: Initial COMPARISON: July 26, 2012 FINDINGS: The lungs are clear without evidence of focal abnormal airspace opacity. There is no pleural effusion or pneumothorax. The heart size, mediastinal contours and pulmonary vascularity are within normal limits. There is no significant skeletal abnormality. IMPRESSION: No acute cardiopulmonary disease. .
--- NOTE | 2017-06-03 10:59 | Anesthesia Postoperative Note ---
- Date and Time Date: 06/03/17 Time: 10:59 - Status Patient Participated in Evaluation: Patient Participated in Person Vital Signs: Temperature 97.2 F 06/03/17 10:54 Pulse Rate 91 06/03/17 10:54 Respiratory Rate 20 06/03/17 10:54 Blood Pressure 128/60 06/03/17 10:54 Pulse Oximetry 100 06/03/17 10:54 Respiratory Function: Airway Patent Cardiovascular Function: Regular Pulse EKG: Sinus Rhythm Mental Status: Alert and Oriented Pain Intensity: 0 Hydration: Taking PO Fluids Complications During Recover: None Apparent - Follow-Up Instructions Instructions: Per Surgeon
--- NOTE | 2017-06-03 10:59 | General Surgery Procedure Note ---
Date of Procedure: 06/03/17 Surgeon: Meng Postoperative Diagnosis: Acute lower GI tract bleeding. Procedure: Colonoscopy Estimated Blood Loss: See Anesthesia Record.
[2017-06-03] MEDS ORDERED: NS FLUSH BAG 500ml IV PRN ×2 (11:12→11:18)
--- NOTE | 2017-06-03 13:24 | Progress Note ---
- Date 06/03/17 Subjective: 86-year-old male presents to the emergency room with rectal bleeding. This started around 0200. He woke up because He was incontinent of stool, went to the restroom and noted that Was bright red bloody bowel movement that he had an event in the stool. He's had a couple few more including one here at the hospital. He denies any feelings of illness either earlier today or with the bowel movements and even right at this moment. He does feel a bit of pressure in his abdomen like some urgency that he needs to have a bowel movement. He denies taking aspirin or any blood thinners for that matter. He denies any known previous history of anything like this. He thinks he had a colonoscopy 5 years ago that was reportedly normal. He denies any fever chills nausea vomiting he denies any cough shortness of breath orthopnea or PND. He usually ambulates normally without assistive device. Review of records indicates his last hemoglobin on record was 13.6 on June Mr. Hubbard was taken for see scope this morning with Dr. Fan. I had a long conversation with Dr. Fan. Apparently Mr. Hubbard did quit bleeding yesterday afternoon during his bowel prep as what was coming out was clear and not bloody. However early this morning he started bleeding again. He was passing large clots. With the scope Dr. Fan found diverticulosis. He states that he would get an area all cleaned out advance the scope and on pullback it would be all bloody again. He was unable to find the exact spot of the bleed therefore he was unable to injected or click it. He states its approximately 22 centimeters up in the mid-sigmoid colon. He actually conferred with his partner Dr. Grider who did not feel going to surgery right away is necessarily the best option. Dr. Fan recommended sending the patient ICU entrance using. The patient was seen post scope by me. He has family in the room. He denies any pain anywhere. He denies shortness of breath. I explained the situation and he is agreeable at this time. Objective Vital signs: Temperature 97.6 F 06/03/17 11:00 Pulse Rate 90 06/03/17 12:45 Respiratory Rate 16 06/03/17 11:00 Blood Pressure 142/65 H 06/03/17 12:45 Pulse Oximetry 98 06/03/17 12:45 Height/Weight/BMI: Height 1.73 m Weight 73.6 kg Body Mass Index 24.3 Comments: Gen: alert and oriented. NAD Skin: warm and dry HEENT: NC/AT PERRL, EOMI, Sclera, lids and conjunctiva wnl. MMM. OP clear. Neck: No JVD, Carotids 2+ without bruits Lungs: clear. No rales, rhonchi or wheezes CV: regular. No murmur, rub or gallop Abd: soft. +BS. NT/ND MS: No edema. Good strength and ROM Neuro: No focal deficits Results - Labs CBC & Chem 7: 06/03/17 11:34 06/03/17 03:55 Assessment and Plan (1) Hematochezia Current visit: Yes Status: Acute (2) Anemia due to acute blood loss Current visit: Yes Status: Acute (3) Hyperlipidemia Current visit: No Status: Chronic (4) Hypertension Current visit: No Status: Chronic (5) CAD (coronary artery disease) Current visit: No Status: Chronic (6) History of prostate cancer Problem details: Radiation Current visit: No Status: Chronic (7) GERD (gastroesophageal reflux disease) Current visit: No Status: Chronic (8) Renal failure Problem details: previous creat 1.6 on 06/29/14 Current visit: Yes Status: Acute Assessment and Plan: Assessment and Plan: 1. Acute lower GI bleed. -Painless, without fever or elevated white count. -Patient had colonoscopy 5 years ago without significant finding. -Supportive care, IVF -S/P C Scope today, finding active bleeding in sigmoid colon. Unable to inject or clip. -May need surgical intervention vs Interventional radiology -Keep NPO -Transfuse 2 units today -H&H q6 hours, repeat transfusions as needed 2. Anemia from acute GI blood loss -Transfuse and follow labs. -serial H &H -IV fluids 3. CAD with stents in late . ([place]) -on beta jorge and Statin but not on aspirin regularly. 4. Hypertension -Will start IV lopressor for BP and HR control 5. Acute kidney injury-resolved. -no history of chronic kidney disease per patient. -Will follow labs -IV fluids 6. Prophylaxis -SCDs, PPI DVT Prophylaxis: SCD's GI Prophylaxis: Protonix Resuscitation Status: Full Code - Time spent with patient Time with patient PN: 15 minutes - Physician Narrative Narrative: Date: 06/03/17 Time: 1319 Hospital Course Summary Disclaimer: The visit summary below is not to be considered part of the above Progress Note.
[2017-06-03] MEDS: METOPROLOL 5mg/5ml INJECTION IVP SCH ×2 (18:33→21:53)
[2017-06-03] MEDS: LATANOPROST 0.005% EYE DROPS 2.5ml EACH EYE SCH (22:04)
[2017-06-04] MEDS: METOPROLOL 5mg/5ml INJECTION IVP SCH ×4 (02:18→20:24)
[2017-06-04] MEDS: ONDANSETRON 4 MG/2 ML INJECTION IVP PRN ×2 (04:00→11:22)
[2017-06-04] MEDS: D5-1/2NS 1,000 ML IV SCH ×2 (06:09→17:35)
--- NOTE | 2017-06-04 07:28 | Operative Note ---
DATE OF OPERATION 06/03/2017 PREOPERATIVE DIAGNOSES 1. Acute lower gastrointestinal tract bleeding. 2. Anemia due to acute gastrointestinal tract blood loss. 3. Extensive descending and sigmoid colon diverticulosis found at colonoscopy on 09/11/2012. 4. Status post radiation therapy for treatment of prostate cancer. 5. 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 6. Internal hemorrhoids found at colonoscopy in 2007 and 2008. 7. Personal history of tubular adenoma colon polyps. POSTOPERATIVE DIAGNOSES 1. Sigmoid colon diverticulosis. 2. Status post radiation therapy for treatment of prostate cancer. 3. Acute lower gastrointestinal tract bleeding from sigmoid colon diverticulum. 4. Anemia due to acute lower gastrointestinal tract blood loss. OPERATION Total colonoscopy. SURGEON Dr. Meng MATHIS ASA CLASS 3E FINDINGS There were no colon or rectal tumors. There were no colon or rectal polyps. There were no colonic angiodysplasia lesions found at the time of this procedure. There was no inflammatory bowel disease. There was no radiation proctitis seen at the time of the procedure today. The patient does have sigmoid colon diverticulosis. The patient was having active lower gastrointestinal tract bleeding from a diverticulum located approximately 20 cm proximal to the anal verge at the time of the colonoscopy procedure today. The patient did have bright red blood clots in the rectum and colon extending up to a level about 30 cm proximal to the anal verge. There were some smaller amounts of blood in the colon between a level 30 cm and 60 cm proximal to the anal verge. There was no blood at all in the cecum or ascending colon or proximal transverse colon area. After all of the blood had been irrigated and aspirated out of the colon and removed from the colon during the procedure, the patient continued to have some persistent ongoing oozing of bright red blood from the colon from a level 20 cm proximal to the anal verge. This was the area of most extensive diverticulosis. The colon was narrowed at this area with multiple areas of acute angulation due to the extensive diverticulosis throughout this area. This did keep the colon from being able to be distended up adequately to see the exact diverticulum which the bleeding was coming from. The specific diverticulum from which the bleeding was occurring was never able to be precisely determined. The general area where the bleeding was occurring was able to be determined at the time of the procedure and this was from a level about 20 cm proximal to the anal verge in an area of extensive diverticulosis. DESCRIPTION OF OPERATION The patient was brought to the endoscopy room. The patient was placed on a cart in the endoscopy room. The patient was placed in left lateral recumbent position on the cart in the endoscopy room. The patient was premedicated with intravenous sedation medication administered by the nurse medical insurance clerk. The Olympus colonoscope was used. The colonoscope was introduced into the rectum. The colonoscope was advanced up through the rectum and colon. Blood clots which were encountered at this level were removed by aspiration and also irrigation was performed at this time. Blood was removed from the rectum and colon as the colonoscope was advanced up through the colon. The colonoscope was advanced up through the colon easily all the way up to the cecum. The appendiceal orifice was clearly identified. The ileocecal valve was clearly identified. The colonoscope had been inserted up to a level about 70 cm proximal to the anal verge when the cecum was reached. The colonoscope was then withdrawn out through the colon. There was no blood at the cecum or ascending colon or at the proximal transverse colon. The colonoscope was withdrawn back down into the sigmoid colon. More irrigation was performed at this time and all the blood clots were removed. Quite a bit of time was spent attempting to identify the exact diverticulum where the bleeding was occurring. It was thought that the bleeding might be able to be stopped with application of an endoscopic hemoclip if the exact specific diverticulum where the bleeding was occurring could be identified. The colonoscope was repeatedly advanced back and forth through the sigmoid colon attempting to identify this diverticulum. The diverticulum could never be precisely identified. The general area where the bleeding was occurring appeared to be about 20 cm proximal to the anal verge. There was extensive diverticulosis in this area with a lot of angulation of the colon and narrowing of the colon and this did make it difficult to see the specific diverticulum from which the bleeding was occurring. After a long amount of time spent doing this, attempts to identify the specific diverticulum that was causing the bleeding were eventually abandoned. The colonoscope was then withdrawn the remainder of the way out through the colon and rectum and removed from the patient. Findings throughout the procedure were as described above. The patient did continue to have active bleeding from the colon at the end of the procedure. The patient did continue to receive intravenous sedation medication administered by the nurse medical insurance clerk throughout the operation. The patient did tolerate the operation well. OZZIE
[2017-06-04] MEDS: PANTOPRAZOLE 40 MG INJECTION IVP SCH (08:22)
--- NOTE | 2017-06-04 14:18 | Progress Note ---
- Date 06/04/17 Subjective: Mr. Hubbard was seen with family members at the bedside. He reports ongoing rectal bleeding of bright red blood with some clots. He describes passing blood every 2 -1/2-3 hours and is unsure if the amount of blood is decreasing over time or not. He feels fatigued and a little nauseated when he gets up to go to the bathroom but denied lightheadedness. Additionally he denies dyspnea, palpitations, or chest pain. He slept okay overnight and reports he is voiding well and without dysuria. He denied fever and has not required supplemental oxygen. He's had 2 units of packed red blood cells today. Objective Vital signs: Temperature 98.0 F 06/04/17 05:00 Pulse Rate 71 06/04/17 10:00 Respiratory Rate 16 06/04/17 10:00 Blood Pressure 126/60 06/04/17 10:00 Pulse Oximetry 97 06/04/17 10:00 I/O 2329/425 EXAM General-NAD, alert, fluent speech HEENT-EOMI, conjunctiva clear, sclera anicteric, oropharynx clear Lungs-respirations nonlabored, good airflow, crackles at the bases L > R Cardiac-regular rhythm, S1-S2 Abd-soft, nontender, bowel sounds present Ext-without edema Neuro-MAEW Psych-calm, cooperative, oriented 3 - Rhythm: Normal Sinus Rhythm Height/Weight/BMI: Height 1.73 m Weight 73.6 kg Body Mass Index 24.3 Results - Labs CBC & Chem 7: 06/04/17 09:50 06/04/17 01:48 Labs: WBC 9.9, platelet count 135K this a.m. - Imaging and Cardiology Chest x-ray Status: image reviewed by me (admission film reviewed-NAD) Assessment and Plan (1) Hematochezia Current visit: Yes Status: Acute (2) Anemia due to acute blood loss Current visit: Yes Status: Acute Assessment and Plan: Assessment: Acute lower GI bleed/hematochezia Acute blood loss anemia-2 u PRBC 06/03/17 Diverticulosis, extensive Coronary artery disease, remote stents Hypertension Acute kidney injury, resolved Hyperlipidemia Hx prostate cancer with radiation GERD Plan: Ongoing blood loss, nursing reports volume appears to be decreasing. Hemoglobin improved after 2 units packed red blood cells yesterday with last hemoglobin down slightly. Continue to monitor every [address] Fan-if bleeding escalates anticipate transfer to [facility] to permit IR embolization for more definitive management. Probable diverticular bleed per visualization of sigmoid colon were extensive diverticuli were seen. This corresponded to the area of ongoing blood loss during colonoscopy. Blood pressure stable on IV Lopressor. Oral meds on hold while nothing by mouth. Discussed with nursing. DVT Prophylaxis: SCD's GI Prophylaxis: Protonix Resuscitation Status: Full Code - Physician Narrative Narrative: Date: 06/04/17 Time: 1414 Hospital Course Summary Disclaimer: The visit summary below is not to be considered part of the above Progress Note. Hospital Course: 06/02/17 Admitted with spontaneous, painless bright red blood per rectum. Colonoscopy 5 years ago without significant findings. Dr. Fan consulted. Monitor hemoglobin every 6 hours, supportive care. 06/03/17 Rectal bleeding initially stopped yesterday but began again early this morning with passage of large clots and bright red blood. Extensive diverticulosis found a colonoscopy in the sigmoid region corresponding to the area of active blood loss. Due to bleeding during colonoscopy the exact location of blood loss could not be identified to permit injection or placement of a clip. Continue supportive care; patient to be transfused 2 units of blood for hemoglobin of 7.8 with ongoing blood loss. 06/04/17 Ongoing blood loss, nursing reports volume appears to be decreasing. Hemoglobin improved after 2 units packed red blood cells yesterday with last hemoglobin down slightly. Continue to monitor every [address] Fan-if bleeding escalates anticipate transfer to [facility] to permit IR embolization for more definitive management. Probable diverticular bleed per visualization of sigmoid colon were extensive diverticuli were seen. This corresponded to the area of ongoing blood loss during colonoscopy. Blood pressure stable on IV Lopressor. Oral meds on hold while nothing by mouth.
--- NOTE | 2017-06-04 16:32 | Progress Note ---
DATE 06/04/2017 HISTORY OF PRESENT ILLNESS The patient was transferred to the intensive care unit following his total colonoscopy procedure yesterday. He remains in the intensive care unit at this time. The patient is not having any active lower gastrointestinal tract bleeding at the present time. He has not had any bleeding for several hours. The patient was transfused with 2 units of packed red blood cells yesterday. The patient has only had these 2 units of packed red blood cells transfused since admission to the hospital. He has no abdominal discomfort at this time. He has not had any rectal bleeding for several hours. PHYSICAL EXAMINATION VITAL SIGNS: Temperature is 98.8 degrees Fahrenheit axillary. Pulse is 79. Respiratory rate is 21. Blood pressure is 114/49. Oxygen saturation is 99% on room air. ABDOMEN: The abdomen is soft and nontender. LABORATORY DATA Hemoglobin was 9.5 and hematocrit was 28.1 at 0148 hours today. Hemoglobin was 8.6 at 0950 hours. IMPRESSION 1. Recent acute lower gastrointestinal tract bleeding from sigmoid colon diverticulum. The bleeding appears to be stopped at the present time. 2. Anemia due to acute lower gastrointestinal tract blood loss. RECOMMENDATIONS Continue to monitor the patient closely in the hospital at this time for any recurrent bleeding. Vital signs will be monitored. Hemoglobin and hematocrit levels will be monitored. I did discuss management of the patient with Dr. Horn today. PATIENT EDUCATION I did talk with the patient and his and his daughter today about the current status of the patient and plans for monitoring of the patient. I did talk with the patient and his and his daughter about options for further treatment if the patient experiences further acute lower gastrointestinal tract bleeding. OZZIE
[2017-06-04] MEDS: LATANOPROST 0.005% EYE DROPS 2.5ml EACH EYE SCH (20:24)
[2017-06-05] MEDS: METOPROLOL 5mg/5ml INJECTION IVP SCH ×2 (01:12→08:55)
[2017-06-05] MEDS: D5-1/2NS 1,000 ML IV SCH ×3 (03:59→14:48)
[2017-06-05] MEDS: PANTOPRAZOLE 40 MG INJECTION IVP SCH (08:55)
--- NOTE | 2017-06-05 13:55 | Progress Note ---
DATE 06/05/2017 HISTORY The patient remains in the Intensive Care Unit at this time. The patient states that he has had no further rectal bleeding for the last 24 hours. The last rectal bleeding which occurred was about this time yesterday morning. The hemoglobin of the patient did ultimately drift down to 7.1 at 1553 hours on 06/04/17 as a result of the bleeding which he experienced yesterday morning. The patient was transfused with two additional units of packed red blood cells yesterday evening after the hemoglobin of 7.1 was returned. The patient has therefore had transfusion of 4 units of packed red blood cells since admission to the hospital. The patient is having no abdominal discomfort. He is feeling well today. PHYSICAL EXAMINATION VITAL SIGNS: Pulse is 68. Respiratory rate is 13. Blood pressure is 114/57. Oxygen saturation is 96% on room air. ABDOMEN: The abdomen is soft and nontender.. LABORATORY DATA Hemoglobin was 9.3 at 0016 hours today. Hemoglobin was 9.4 and hematocrit was 28 at 0550 hours today. IMPRESSION 1. Recent acute lower gastrointestinal tract bleeding from a sigmoid colon diverticulum. The bleeding appears to be stopped at the present time. 2. Anemia due to acute lower gastrointestinal tract blood loss. RECOMMENDATIONS I did discuss management of the patient with Dr. Horn again today. The patient will be started on a clear liquid diet. Rate of administration of intravenous fluids will be decreased. Vital signs will be monitored. Hemoglobin and hematocrit will continue to be monitored. We will probably transfer the patient from the Intensive Care Unit out to the Surgical Unit or Medical Unit later today. We will continue to observe the patient for any recurrent bleeding. PATIENT EDUCATION I did talk with the patient and his and his daughter again today about current status of the patient and plans for further monitoring of the patient. OZZIE
--- NOTE | 2017-06-05 20:44 | Progress Note ---
- Date 06/05/17 Subjective: Mr. Hubbard was seen late this morning prior to transferring out of the ICU. He reports having no rectal bleeding in a little over 24 hours at the time of my evaluation with nursing reporting last bloody stool at about 11 AM yesterday. He otherwise feels good and was looking forward to having liquids. He denied dyspnea, cough, chest pain, palpitations, nausea, abdominal pain, heartburn, fever, or lightheadedness. He reported feeling generalized weakness. Objective Vital signs: Temperature 96.6 F L 06/05/17 20:00 Pulse Rate 75 06/05/17 20:00 Respiratory Rate 16 06/05/17 20:00 Blood Pressure 171/79 H 06/05/17 20:00 Pulse Oximetry 97 -RA 06/05/17 20:00 I/O 2353/1025; weight down 3 kg from admission NAD, alert, fluent speech EOMI, sclera anicteric, conjunctiva clear, oropharynx clear Respirations nonlabored, good airflow, breath sounds clear anteriorly/ posteriorly Regular rhythm, S1-S2 Abdomen soft, nontender, bowel sounds present Extremities without edema MAEW Calm, cooperative Rhythm: Normal Sinus Rhythm Height/Weight/BMI: Height 1.73 m Weight 71 kg Body Mass Index 24.3 Results - Labs CBC & Chem 7: 06/05/17 05:50 06/05/17 05:50 Labs: Albumin 2.8, phosphorus 2.9 Assessment and Plan (1) Hematochezia Current visit: Yes Status: Acute (2) Anemia due to acute blood loss Current visit: Yes Status: Acute Assessment and Plan: Assessment: Acute lower GI bleed/hematochezia Acute blood loss anemia-2 u PRBC 06/03/17, 2 u 06/04/17 Diverticulosis, extensive Coronary artery disease, remote stents Hypertension Acute kidney injury, resolved Hyperlipidemia Hx prostate cancer with radiation GERD Plan: Doing well, no recurrent blood loss in 24 hours. Has been transfused total of 4 units packed red blood cells. Last 2 hemoglobins 9.3-9.4 following transfusions yesterday. Hemodynamically stable; discussed with Dr. Fan-clear liquid diet initiated, transfer out of ICU. Recheck hemoglobin in a.m. PT/OT consults requested. Begin resuming home medications with metoprolol to be converted to oral formulation starting in a.m. Decrease IV fluid rate and discontinue after current bag is infused. - Physician Narrative Narrative: Date: 06/05/17 Time: 2039 Hospital Course Summary Disclaimer: The visit summary below is not to be considered part of the above Progress Note. Hospital Course: 06/02/17 Admitted with spontaneous, painless bright red blood per rectum. Colonoscopy 5 years ago without significant findings. Dr. Fan consulted. Monitor hemoglobin every 6 hours, supportive care. 06/03/17 Rectal bleeding initially stopped yesterday but began again early this morning with passage of large clots and bright red blood. Extensive diverticulosis found a colonoscopy in the sigmoid region corresponding to the area of active blood loss. Due to bleeding during colonoscopy the exact location of blood loss could not be identified to permit injection or placement of a clip. Continue supportive care; patient to be transfused 2 units of blood for hemoglobin of 7.8 with ongoing blood loss. 06/04/17 Ongoing blood loss, nursing reports volume appears to be decreasing. Hemoglobin improved after 2 units packed red blood cells yesterday with last hemoglobin down slightly. Continue to monitor every [address] Fan-if bleeding escalates anticipate transfer to [facility] to permit IR embolization for more definitive management. Probable diverticular bleed per visualization of sigmoid colon were extensive diverticuli were seen. This corresponded to the area of ongoing blood loss during colonoscopy. Blood pressure stable on IV Lopressor. Oral meds on hold while nothing by mouth. 06/05/17 Doing well, no recurrent blood loss in 24 hours. Has been transfused total of 4 units packed red blood cells. Last 2 hemoglobins 9.3-9.4 following transfusions yesterday. Hemodynamically stable; discussed with Dr. Fan-clear liquid diet initiated, transfer out of ICU. Recheck hemoglobin in a.m.
[2017-06-05] MEDS: LATANOPROST 0.005% EYE DROPS 2.5ml EACH EYE SCH (22:11)
[2017-06-05] MEDS: ATORVASTATIN 20 MG TABLET PO SCH (22:11)
[2017-06-06] MEDS: FOLIC ACID 1 MG TABLET PO SCH (09:44)
[2017-06-06] MEDS: MULTI-VITAMIN PLAIN TABLET PO SCH (09:44)
[2017-06-06] MEDS: PANTOPRAZOLE 40 MG INJECTION IVP SCH (09:45)
--- NOTE | 2017-06-06 10:27 | Progress Note ---
- Date 06/06/17 Subjective: Patient seen today sitting in his bed eating breakfast. He reports no blood for 2 days, but hasn't had any stools. This is the first he is eating solid foods. He is feeling fine. No CP, SOA, n/v. Objective Vital signs: Temperature 97.2 F 06/06/17 08:00 Pulse Rate 80 06/06/17 08:00 Respiratory Rate 18 06/06/17 08:00 Blood Pressure 152/75 H 06/06/17 08:00 Pulse Oximetry 95 06/06/17 08:00 Rhythm: Normal Sinus Rhythm Height/Weight/BMI: Height 1.73 m Weight 74.1 kg Body Mass Index 24.3 - Constitutional Present: no acute distress, well nourished, well developed - Routine HEENT Exam ENT: Present: mucous membranes moist - Routine Respiratory Exam Present: CTA bilaterally. Absent: wheezes - Routine Cardiovascular Exam Present: RRR. Absent: murmur - Routine Abdominal Exam Present: soft, normoactive bowel sounds, non distended. Absent: tenderness - Routine Extremities Exam Present: no edema, normal capillary refill - Routine Skin Exam Present: dry, warm - Routine Neurological Exam Present: alert, oriented X3 - Routine Lymphatic Exam Lymphatic: Absent: adenopathy - Routine Psychiatric Exam Present: normal affect, cooperative Results - Labs CBC & Chem 7: 06/06/17 04:20 06/05/17 05:50 Assessment and Plan (1) Hematochezia Current visit: Yes Status: Acute (2) Anemia due to acute blood loss Current visit: Yes Status: Acute Assessment and Plan: Assessment: Acute lower GI bleed/hematochezia Acute blood loss anemia-2 u PRBC 06/03/17, 2 u 06/04/17 Diverticulosis, extensive Coronary artery disease, remote stents Hypertension Acute kidney injury, resolved Hyperlipidemia Hx prostate cancer with radiation GERD Plan: Hemodynamically stable; no recurrent blood loss in 48 hours. Has been transfused total of 4 units packed red blood cells. (Last transfusion 06/04/17.) Last 2 hemoglobins 9.3-9.4 following transfusions yesterday. 8.6 this morning. Advance diet. DC IV fluids. Continue OT/PT. Metoprolol was converted from IV to PO today. Will also resume his nortriptyline. DVT Prophylaxis: SCD's Resuscitation Status: Full Code - Physician Narrative Physician: Devi Horn MD Narrative: Date: 06/06/17 Time: 1826 I have independently evaluated and examined this patient. I reviewed the chart, the patient's history, and the [employer]/PA's documented findings as above. We discussed and formulated the assessment and plan as above with additions as below: Doing well when seen near lunchtime, reports no dyspnea or lightheadedness. He enjoyed cream of wheat earlier today and hopes to get solid food later in the day. Has not yet had a bowel movement; blood pressure stable. Alert, cooperative, fluent speech Respirations nonlabored, breath sounds clear Abdomen benign. Continue advancing diet, discontinue IV Protonix. Hospital Course Summary Disclaimer: The visit summary below is not to be considered part of the above Progress Note. Hospital Course: 06/02/17 Admitted with spontaneous, painless bright red blood per rectum. Colonoscopy 5 years ago without significant findings. Dr. Fan consulted. Monitor hemoglobin every 6 hours, supportive care. 06/03/17 Rectal bleeding initially stopped yesterday but began again early this morning with passage of large clots and bright red blood. Extensive diverticulosis found a colonoscopy in the sigmoid region corresponding to the area of active blood loss. Due to bleeding during colonoscopy the exact location of blood loss could not be identified to permit injection or placement of a clip. Continue supportive care; patient to be transfused 2 units of blood for hemoglobin of 7.8 with ongoing blood loss. 06/04/17 Ongoing blood loss, nursing reports volume appears to be decreasing. Hemoglobin improved after 2 units packed red blood cells yesterday with last hemoglobin down slightly. Continue to monitor every [address] Fan-if bleeding escalates anticipate transfer to [facility] to permit IR embolization for more definitive management. Probable diverticular bleed per visualization of sigmoid colon were extensive diverticuli were seen. This corresponded to the area of ongoing blood loss during colonoscopy. Blood pressure stable on IV Lopressor. Oral meds on hold while nothing by mouth. 06/05/17 Doing well, no recurrent blood loss in 24 hours. Has been transfused total of 4 units packed red blood cells. Last 2 hemoglobins 9.3-9.4 following transfusions yesterday. Hemodynamically stable; discussed with Dr. Fan-clear liquid diet initiated, transfer out of ICU. Recheck hemoglobin in a.m. 06/06/17 Doing well. Hemoglobin 8.6. No further bleeding. DC IV fluids. Diet advanced to full liquid. OT/PT
[2017-06-06] MEDS: D5-1/2NS 1,000 ML IV SCH (11:43)
--- NOTE | 2017-06-06 12:49 | Progress Note ---
DATE 06/06/2017 HISTORY OF PRESENT ILLNESS This patient has now had no further rectal bleeding for the past 48 hours. He is out in a room on the surgical unit at this time. He denies any abdominal pain. The patient is tolerating a clear liquid diet. PHYSICAL EXAMINATION VITAL SIGNS: Temperature is 97.2 degrees Fahrenheit oral. Pulse is 80. Respiratory rate is 18. Blood pressure is 152/75. Oxygen saturation is 95% on room air. ABDOMEN: The abdomen is soft and nontender. LABORATORY DATA Hemoglobin is 8.6 and hematocrit is 25.5 this morning. IMPRESSION 1. Recent acute lower gastrointestinal tract bleeding from sigmoid colon diverticulum. The bleeding appears to be stopped at the present time. 2. Anemia due to recent acute lower gastrointestinal tract blood loss. RECOMMENDATIONS 1. Advance diet. 2. Continue to monitor hemoglobin and hematocrit. 3. Continue observation of patient. MTDD
[2017-06-06] MEDS: ATORVASTATIN 20 MG TABLET PO SCH (21:22)
[2017-06-06] MEDS: NORTRIPTYLINE 25 MG CAPSULE PO SCH (21:22)
[2017-06-06] MEDS: LATANOPROST 0.005% EYE DROPS 2.5ml EACH EYE SCH (21:22)
[2017-06-07] MEDS: FOLIC ACID 1 MG TABLET PO SCH (09:11)
[2017-06-07] MEDS: MULTI-VITAMIN PLAIN TABLET PO SCH (09:11)
--- NOTE | 2017-06-07 10:18 | Progress Note ---
- Date 06/07/17 Subjective: Mr. Hubbard is seen sitting in his bed. He reports he is feeling well. He's started on soft solid foods yesterday. He reports he had 2 bowel movements yesterday. He reports the first one was loose and did have some evidence of some "dark" blood, but not a significant amount. He had a second bowel movement later in the day which also had "dark" blood, but he reports it wasn't as much. He is having no pain. He has been up and walking. He would like to eat regular foods. Objective Vital signs: Temperature 97.5 F 06/07/17 07:34 Pulse Rate 95 06/07/17 07:34 Respiratory Rate 15 06/07/17 07:34 Blood Pressure 167/83 H 06/07/17 07:34 Pulse Oximetry 95 06/07/17 07:34 Rhythm: Normal Sinus Rhythm Height/Weight/BMI: Height 1.73 m Weight 73.4 kg Body Mass Index 24.3 - Constitutional Present: no acute distress, well nourished, well developed - Routine Respiratory Exam Present: CTA bilaterally. Absent: wheezes - Routine Cardiovascular Exam Present: RRR. Absent: murmur - Routine Abdominal Exam Present: soft, normoactive bowel sounds, non distended. Absent: tenderness - Routine Extremities Exam Present: no edema, normal capillary refill - Routine Skin Exam Present: dry, warm - Routine Neurological Exam Present: alert, oriented X3 - Routine Lymphatic Exam Lymphatic: Absent: adenopathy - Routine Psychiatric Exam Present: normal affect, cooperative Results - Labs CBC & Chem 7: 06/07/17 15:47 06/07/17 03:59 Assessment and Plan (1) Hematochezia Current visit: Yes Status: Acute (2) Anemia due to acute blood loss Current visit: Yes Status: Acute Assessment and Plan: Assessment: Acute lower GI bleed/hematochezia Acute blood loss anemia-2 u PRBC 06/03/17, 2 u 06/04/17 Diverticulosis, extensive Coronary artery disease, remote stents Hypertension Acute kidney injury, resolved Hyperlipidemia Hx prostate cancer with radiation GERD Plan: Has been transfused a total of 4 units packed red blood cells. (Last transfusion 06/04/17.) Hemoglobin since transfusion 9.4-->8.6-->8.4. Advanced to a full regular diet. Will continue to monitor his stools. If he has no further bleeding, consider dismissal. DVT Prophylaxis: SCD's Resuscitation Status: Full Code - Physician Narrative Physician: Devi Horn MD Narrative: Date: 06/07/17 Time: 2144 I have independently evaluated and examined this patient. I reviewed the chart, the patient's history, and the COMMERCIAL ANALYST/PA's documented findings as above. We discussed and formulated the assessment and plan as above with additions as below: Mr. Hubbard was seen earlier in the day ambulating in the halls with physical therapy. He denies dyspnea at rest but reports he gets slightly winded walking in the halls and feels fatigued. He denied lightheadedness. He had a bowel movement yesterday with a small amount of maroon blood reported on the surface by nursing and another bowel movement today which was almost entirely normal per patient report. He's had no bloody stools in days. Patient is alert, NAD, and abdomen is entirely benign. Respirations are nonlabored with good airflow and breath sounds clear. Hemoglobin over the last 2 days (following last transfusion) 9.3-9.4-8.6-9.2-8.4 -9.0 Reassess hemoglobin in a.m.-if stable and no evidence of active blood loss planned discharge tomorrow morning. Discussed with Dr. aFn and patient's . Hospital Course Summary Disclaimer: The visit summary below is not to be considered part of the above Progress Note. Hospital Course: 06/02/17 Admitted with spontaneous, painless bright red blood per rectum. Colonoscopy 5 years ago without significant findings. Dr. Fan consulted. Monitor hemoglobin every 6 hours, supportive care. 06/03/17 Rectal bleeding initially stopped yesterday but began again early this morning with passage of large clots and bright red blood. Extensive diverticulosis found a colonoscopy in the sigmoid region corresponding to the area of active blood loss. Due to bleeding during colonoscopy the exact location of blood loss could not be identified to permit injection or placement of a clip. Continue supportive care; patient to be transfused 2 units of blood for hemoglobin of 7.8 with ongoing blood loss. 06/04/17 Ongoing blood loss, nursing reports volume appears to be decreasing. Hemoglobin improved after 2 units packed red blood cells yesterday with last hemoglobin down slightly. Continue to monitor every [address] Fan-if bleeding escalates anticipate transfer to [facility] to permit IR embolization for more definitive management. Probable diverticular bleed per visualization of sigmoid colon were extensive diverticuli were seen. This corresponded to the area of ongoing blood loss during colonoscopy. Blood pressure stable on IV Lopressor. Oral meds on hold while nothing by mouth. 06/05/17 Doing well, no recurrent blood loss in 24 hours. Has been transfused total of 4 units packed red blood cells. Last 2 hemoglobins 9.3-9.4 following transfusions yesterday. Hemodynamically stable; discussed with Dr. Fan-clear liquid diet initiated, transfer out of ICU. Recheck hemoglobin in a.m. 06/06/17 Doing well. Hemoglobin 8.6. No further bleeding. DC IV fluids. Diet advanced to full liquid. OT/PT 06/07/17 Has been eating soft foods. 2 bowel movements both with some dark blood. Advance to regular diet and monitor stools.
--- NOTE | 2017-06-07 15:02 | Progress Note ---
DATE 06/07/2017 HISTORY OF PRESENT ILLNESS The diet for this patient was advanced to a full liquid diet yesterday morning. The diet was later advanced yesterday to a soft diet. The patient did have two bowel movements yesterday which had some old dark-red blood with them. These are the first bowel movements that he has had in several days. There was no bright red blood with any of these bowel movements yesterday. The patient just had a smear of dark-red blood with the first bowel movement. He has not passed any other dark-red blood except when he had these two bowel movements. The patient has not had any bright-red rectal bleeding for the last three days. The diet was advanced to a regular diet today. The patient is not having any abdominal pain. PHYSICAL EXAMINATION VITAL SIGNS: Temperature is 98.2 degrees Fahrenheit oral. Pulse is 57. Respiratory rate is 18. Blood pressure is 155/74. Oxygen saturation is 98% on room air. ABDOMEN: The abdomen is soft and nontender. LABORATORY DATA Hemoglobin was 9.2 and hematocrit was 27.4 at 1917 hours on 06/06/2017. Hemoglobin was 8.4 and hematocrit was 25.3 at 0359 hours on 06/07/2017. IMPRESSION 1. Recent acute lower gastrointestinal tract bleeding from sigmoid colon diverticulum. The bleeding appears to be stopped at the present time. 2. Anemia due to recent acute lower gastrointestinal tract blood loss. PLAN 1. Continue to monitor hemoglobin and hematocrit. 2. Continue observation of the patient. 3. Continue a regular diet. MTDD
[2017-06-07] MEDS: NORTRIPTYLINE 25 MG CAPSULE PO SCH (21:01)
[2017-06-07] MEDS: ATORVASTATIN 20 MG TABLET PO SCH (21:01)
[2017-06-07] MEDS: LATANOPROST 0.005% EYE DROPS 2.5ml EACH EYE SCH (21:01)
[2017-06-08 07:23] VITALS: RESP 16
[2017-06-08] MEDS: FOLIC ACID 1 MG TABLET PO SCH (08:23)
[2017-06-08] MEDS: MULTI-VITAMIN PLAIN TABLET PO SCH (08:23)
--- NOTE | 2017-06-08 09:36 | Discharge Summary ---
Discharge Information Date of admission: 06/02/17 06:03 Anticipated date of discharge: 06/08/17 Attending Physician: Devi Horn MD Primary care physician: Ifrah Galo MD - Discharge Diagnosis (1) Hematochezia Status: Acute (2) Anemia due to acute blood loss Status: Acute Acute lower GI bleed/hematochezia Acute blood loss anemia-2 u PRBC 06/03/17, 2 u 06/04/17 Diverticulosis, extensive Coronary artery disease, remote stents Hypertension Acute kidney injury, resolved Hyperlipidemia Hx prostate cancer with radiation GERD - Procedures Procedures: 06/03/17-colonoscopy with Dr. Chopra POSTOPERATIVE DIAGNOSES 1. Sigmoid colon diverticulosis. 2. Status post radiation therapy for treatment of prostate cancer. 3. Acute lower gastrointestinal tract bleeding from sigmoid colon diverticulum. 4. Anemia due to acute lower gastrointestinal tract blood loss. - Laboratory Labs: 06/08/17 04:16 06/07/17 03:59 Laboratory Tests 06/02/17 06/02/17 06/03/17 04:32 13:48 03:55 Hgb 11.9 L 9.9 L 8.4 L D 06/04/17 06/05/17 06/06/17 01:48 00:16 04:20 Hgb 9.5 L 9.3 L D 8.6 L 06/07/17 06/08/17 03:59 04:16 Hgb 8.4 L 8.6 L - Radiology Radiology: Date of Exam: 06/02/17 INDICATION: gi bleed PROCEDURE: CHEST 2-VIEWS UPRIGHT (PA & LAT) FINDINGS: The lungs are clear without evidence of focal abnormal airspace opacity. There is no pleural effusion or pneumothorax. The heart size, mediastinal contours and pulmonary vascularity are within normal limits. There is no significant skeletal abnormality. IMPRESSION: No acute cardiopulmonary disease. History of Present Illness HPI: 86-year-old male presents to the emergency room with rectal bleeding. This started around 0200. He woke up because He was incontinent of stool, went to the restroom and noted that Was bright red bloody bowel movement that he had an event in the stool. He's had a couple few more including one here at the hospital. He denies any feelings of illness either earlier today or with the bowel movements and even right at this moment. He does feel a bit of pressure in his abdomen like some urgency that he needs to have a bowel movement. He denies taking aspirin or any blood thinners for that matter. He denies any known previous history of anything like this. He thinks he had a colonoscopy 5 years ago that was reportedly normal. He denies any fever chills nausea vomiting he denies any cough shortness of breath orthopnea or PND. He usually ambulates normally without assistive device. Review of records indicates his last hemoglobin on record was 13.6 on June Annamarie WISDOM: patient was seen this afternoon. He was resting comfortable in bed. His is at bedside. He reports that this all started very suddenly. He did not have any problems prior to waking up at 2 AM with blood in the bed. He denies any abdominal pain. He states he had a colonoscopy about 5 or [address] Krishna and was told have it done again 10 years. He denies any nausea or vomiting. He denies any abdominal pain. He has continued to have bright red blood per rectum since arrival. He states that it just pours out. He does have an occasional bowel movement with it but it's quite loose with small pieces of thicker material. He states he had a normal bowel movement the day prior. He is having issues with getting up to the bathroom. He becomes diuretic and week. Vital signs have been reasonably stable however at 106/55 with a heart rate of 58 this last trip. He was setting 97% on room air. Blood glucose was checked and it was 180. He denies any chest pain or palpitations. When this started he thought he was having some gas pressure in his stomach that that is subsequently resolved. He is not been ill lately particularly no fever or chills. He denies any shortness of breath, cough or sputum production. He denies any issues with lower extremity edema. Objective Vital signs: Temperature 96.4 F L 06/08/17 07:22 Pulse Rate 81 06/08/17 07:22 Respiratory Rate 16 06/08/17 07:22 Blood Pressure 157/76 H 06/08/17 07:22 Pulse Oximetry 97 06/08/17 07:22 Rhythm: Normal Sinus Rhythm Height/Weight/BMI: Height 1.73 m Weight 73.6 kg Body Mass Index 24.3 - Constitutional Present: no acute distress, well nourished, well developed - Routine HEENT Exam Head: Present: normocephalic, atraumatic - Routine Respiratory Exam Present: CTA bilaterally. Absent: wheezes - Routine Cardiovascular Exam Present: RRR. Absent: murmur - Routine Abdominal Exam Present: soft, normoactive bowel sounds, non distended. Absent: tenderness - Routine Extremities Exam Present: no edema, normal capillary refill - Routine Skin Exam Present: dry, warm - Routine Neurological Exam Present: alert, oriented X3 - Routine Lymphatic Exam Lymphatic: Absent: adenopathy - Routine Psychiatric Exam Present: normal affect, cooperative Hospital Course This is a general summary of the patient's hospital course. For more details refer to the complete medical record. Hospital course: 06/02/17 Admitted with spontaneous, painless bright red blood per rectum. Colonoscopy 5 years ago without significant findings. Dr. Fan consulted. Monitor hemoglobin every 6 hours, supportive care. 06/03/17 Rectal bleeding initially stopped yesterday but began again early this morning with passage of large clots and bright red blood. Extensive diverticulosis found a colonoscopy in the sigmoid region corresponding to the area of active blood loss. Due to bleeding during colonoscopy the exact location of blood loss could not be identified to permit injection or placement of a clip. Continue supportive care; patient to be transfused 2 units of blood for hemoglobin of 7.8 with ongoing blood loss. 06/04/17 Ongoing blood loss, nursing reports volume appears to be decreasing. Hemoglobin improved after 2 units packed red blood cells yesterday with last hemoglobin down slightly. Continue to monitor every [address] Fan-if bleeding escalates anticipate transfer to [facility] to permit IR embolization for more definitive management. Probable diverticular bleed per visualization of sigmoid colon were extensive diverticuli were seen. This corresponded to the area of ongoing blood loss during colonoscopy. Blood pressure stable on IV Lopressor. Oral meds on hold while nothing by mouth. 06/05/17 Doing well, no recurrent blood loss in 24 hours. Has been transfused total of 4 units packed red blood cells. Last 2 hemoglobins 9.3-9.4 following transfusions yesterday. Hemodynamically stable; discussed with Dr. Fan-clear liquid diet initiated, transfer out of ICU. Recheck hemoglobin in a.m. 06/06/17 Hemoglobin 8.6. DC IV fluids. Diet advanced to full liquid. 2 bowel movements both with some dark blood in the evening. 06/07/17 Advanced to regular diet. No bloody stools. 06/08/17 No bloody stools. Hgb stable. D/c home today. Time spent with patient: greater than 35 minutes DVT Prophylaxis: SCD's GI Prophylaxis: Protonix Discharge Plan - Discharge Disposition Discharge Date: 06/08/17 Disposition: Discharged Home, Self-Care *Condition: Stable Reason For Visit (Visit label in EMR): gi bleed - Discharge Medications *Discharge Medications: Continue Nortriptyline HCl 25 mg PO DAILY #0 Atorvastatin Calcium 20 mg PO HS #0 Folic Acid 0.4 mg PO DAILY #0 [place]-3 Fatty Acids/Fish Oil [Fish Oil 1,000 mg Softgel] 1,000 mg PO DAILY #0 multivitamin tablet 1 tab PO DAILY tab Lopressor (metoprolol tartrate) 50 mg tablet 50 mg PO DAILY tab latanoprost (Xalatan) 0.005 % eye drops 0.005 % OP DAILY ml - Discharge Packet/Instructions *Diet: Regular diet *Activity: as tolerated *Pain Management/Treatment: n/a *Wound Care: n/a *Expected Signs/Symptoms: You may continue to have a small amount of bleeding with bowel movements. This should gradually resolve. *Notify Physician if: you have further bleeding *During Business Hours Contact: Dr. Galo's office *After Business Hours Contact: Dr. Galo's office and follow after hours instructions *Pending Lab/Results: No Pending Lab - Referrals/Follow Up *Referrals/Follow Up: Ifrah Galo MD [Family Provider] - 1 Week - Patient Handouts Patient Handouts: Gastrointestinal Bleeding (DC), Blood Transfusion (GEN) - Dismissal Complete Discharge Instructions are:: Complete Physician Narrative - Narrative Physician: Devi Horn MD Attestation Narrative: Date: 06/08/17 Time: 172 I have independently evaluated and examined this patient. I reviewed the chart, the patient's history, and the [employer] ELECTRONICS TECHNICIAN/PA's documented findings as above. We discussed and formulated the assessment and plan as above with additions as below: Mr. Hubbard was seen this morning and reported mild fatigue with ambulation. He has had no further rectal bleeding and hemoglobin was stable. He denies dyspnea or lightheadedness. Respirations are nonlabored with good airflow, breath sounds are clear; abdomen is soft and nontender with active bowel sounds. Hemoglobin has remained stable for the past 3 days. Stable for discharge at this time. Patient received a total of 4 units of PRBCs for acute lower GI bleed believed to be diverticular in origin. Bleeding initially stopped and that he re-bled prolonging hospitalization. Patient assessed to have hemoglobin reassessed at follow-up and may eventually require iron therapy if hemoglobin doesn't spontaneously improve but I recommended that he not adequate yet to avoid constipation.
[2017-06-08 11:55] VITALS: BP 148/70; PULSE 70; TEMP 98.2; O2SAT 99
== END 2017-06-08 13:00 | disposition home or self-care (01) | DRG 378 ==
LOC: ED 03:34 → SUATTDRO 06:03 → SRG 06:03 → CCU 06-03 14:45 → SRG 06-05 14:51
PROVIDERS: ADMIT Pediatrics; ATTEND Internal Medicine